=== PATIENT | female | born 1975 | race Two or more races ===

== ENCOUNTER 2019-12-09 01:22 | Emergency (ER) | payer OTHER ==
[~2019-12-09] VITALS: Ht 167.6 cm; Wt 122.5 kg
[2019-12-09] MEDS ORDERED: ZITHROMAX100 MG/51 (01:40)
[2019-12-09] MEDS ORDERED: DORYX MPC120 MG (01:40)
[2019-12-09] MEDS ORDERED: ATORVASTATIN CA10 MG (01:42)
[2019-12-09] MEDS ORDERED: UNITHROID50 MCG (01:43)
== END 2019-12-09 09:46 | disposition home or self-care (01) ==
LOC: ER 01:22
DX: R06.02 Shortness of breath (principal); B96.0 Mycoplasma pneumoniae [M. pneumoniae] as the cause of diseases classified elsewhere